=== PATIENT | male | born 1960 | race Caucasian/White ===

== ENCOUNTER 2017-04-06 15:00 | Inpatient (IN) | payer BC ==
[~2017-04-06] VITALS: Ht 200.7 cm; Wt 130.0 kg
--- NOTE | ~2017-04-06 | MR17 ---
[facility] A Service of [facility] RADIOLOGY TEXT RESULTS PATIENT: RAIMUNDO GUILLAUME LOCATION: C3A 301-01 : 62 UNIT #: [id number] AGE: [address]: Sadi Loo MD SEX: M ORDER DR: [id number] [facility] [address] [place], [place] [address] [id number] I MR#: [id number] Acc #: [id number] NAME: RAIMUNDO GUILLAUME : 1960 SEX: M STUDY DATE/TIME: 04/07/2017 22:58 UNIT: A U ROOM: 301 STUDY DESCRIPTION: MR Brain WWo Contrast Attending Physician: Sadi Loo M.D. Ordering Physician: Sadi Loo M.D. Primary Care Physician: Tyrel Copeland Parveen [facility] REPORT This report is preliminary unless electronic signature is present. EXAM Brain MRI with and without. HISTORY 56-year-old male patient with complaint of seizure disorder, atrial fibrillation, hypertension. Seizure disorder for 2 1/2 years. Patient has had 7 seizures in that time, the last one 3 days ago when patient blacked out while mowing the lawn and hit his left forehead. No history of cancer or surgery. COMMENT MRI of the brain was performed prior to and following the intravenous administration of 20 mL of MultiHance using a seizure protocol on the 1.5T system. There is comparison head CT from 04/06/2017. Preliminary voice note provided by Dr. Mclaughlin at 23:50. There is no evidence for a recent ischemic insult on the diffusion series. Midline structures are unremarkable. There is no extraaxial fluid collection. There is mild asymmetry of the temporal horns, but there is no definite signal abnormality in the hippocampal formations. No convincing evidence for mesial temporal sclerosis. Please correlate with any known EEG abnormalities. Small amount of fluid or inflammatory change in the mastoid tips. The major intracranial flow voids are maintained. There is no hydrocephalus. There is mild white matter signal abnormality, which is nonspecific, most confluent in the deep periventricular white matter and probably due to small vessel disease. This includes some mild signal abnormality in the brainstem. Following contrast administration, there is no pathologic intracranial enhancement. No intracranial mass lesion or mass effect. [facility] A Service of [facility] RADIOLOGY TEXT RESULTS PATIENT: RAIMUNDO GUILLAUME LOCATION: C3A 301-01 : 62 UNIT #: [id number] AGE: [address]: Sadi Loo MD SEX: M ORDER DR: Nothing to suggest migrational anomaly. No definite discrete seizure focus is identified. Partly redemonstrated is the soft tissue swelling in the left frontal scalp area. IMPRESSION 1. Mild probable sequelae of small vessel disease, otherwise essentially negative MRI of the brain with and without contrast using the seizure protocol. No discrete seizure focus is identified. Please correlate with any EEG abnormalities. STAT * RESULT Dictated by... Manda Cleveland M.D. THIS IS AN ELECTRONICALLY VERIFIED REPORT Manda Cleveland M.D. at 04/08/2017 9:56 AM Roly TD: 04/08/2017 08:15 JOB #: [id number] MRI CENTER REPORT Page 1 of 1 COPY
--- NOTE | ~2017-04-06 | EKG ---
PATIENT: RAIMUNDO GUILLAUME UNIT #: [id number] Ventricular Rate: 74 BPM Atrial Rate: 88 BPM QRS Duration: 106 ms Q-T Interval: 394 ms QTC Calculation(Bezet): 437 ms Calculated R Aspers: -15 degrees Calculated T Aspers: 36 degrees Diagnosis Line: Atrial fibrillation Diagnosis Line: Abnormal ECG Diagnosis Line: When compared with ECG of 06-APR-2017 16:31, Diagnosis Line: (unconfirmed) Diagnosis Line: No significant change was found Diagnosis Line: Confirmed by RICH AVENDAÑO MD ([id number]) on Diagnosis Line: 04/07/2017 2:01:11 PM INTERPRETING MD: KATERYNA HANCOCK
--- NOTE | ~2017-04-06 | CR229 ---
[facility] A Service of [facility] RADIOLOGY TEXT RESULTS PATIENT: RAIMUNDO GUILLAUME LOCATION: [facility] : 62 UNIT #: [id number] AGE: [address]: Sadi Loo MD SEX: M ORDER DR: [id number] [facility] [address] [place], [place] [address] [id number] I MR#: [id number] Acc #: [id number] NAME: RAIMUNDO GUILLAUME : 1960 SEX: M STUDY DATE/TIME: 04/06/2017 16:02 UNIT: [address] ROOM: [facility] STUDY DESCRIPTION: CR Shoulder Min 2 View Lt Attending Physician: Kindra Dove M.D. Ordering Physician: Logan Lee M.D. Primary Care Physician: Tyrel Saini MEDICAL IMAGING REPORT This report is preliminary unless electronic signature is present EXAM Left shoulder INDICATION Left shoulder pain after fall during seizure 1 day ago. COMPARISON 02/15/2016. FINDINGS Three views of the left shoulder were obtained. There is elevation of the clavicle as it relates to the acromion process but this is unchanged from the old exam. There are 3 or 4 fragments of calcification or bone inferior to the clavicle measuring up to 2 cm in diameter but they are also unchanged. IMPRESSION There is no evidence of an acute injury involving the shoulder. The patient does seem to have a chronic AC joint separation with elevation of the clavicle. There are some fragments of bone or calcifications inferior to the clavicle but these findings are all stable from February 15, 2016. Dictated by... Michael Merchant M.D. THIS IS AN ELECTRONICALLY VERIFIED REPORT Michael Merchant M.D. at 04/07/2017 2:52 PM PATRIC/nia [facility] A Service of [facility] RADIOLOGY TEXT RESULTS PATIENT: RAIMUNDO GUILLAUME LOCATION: [facility] : 62 UNIT #: [id number] AGE: [address]: Sadi Loo MD SEX: M ORDER DR: TD: 04/07/2017 06:54 JOB #: [id number] MEDICAL IMAGING REPORT Page 1 of 1 COPY
--- NOTE | ~2017-04-06 | HP ---
Unit #: [id number] #: [id number] Patient: RAIMUNDO GUILLAUME [id number] [facility] [address] [place], [place] [address] [id number] I MR#: [id number] NAME: RAIMUNDO GUILLAUME ROOM: 40858 Age: 56 Sex: M Admission Date: 04/06/2017 : 1960 Attending Physician: Kindra Dove M.D. Primary Care Physician: Tyrel Saini HISTORY AND PHYSICAL CHIEF COMPLAINT Seizure. HISTORY OF PRESENT ILLNESS The patient is a 56-year-old male with past medical history of hypertension, GERD, anxiety, chronic pain, who presented to the emergency department for evaluation of the above. The patient states that he was in his usual state of health until the day of admission when he was doing yard work. He states that he had been doing some trimming and walked to his garage. He felt his right arm "seize up." His head started pulling in one direction and he passed out. He denies any bladder or bowel incontinence. He bit his lip. He states that this is the eighth time he has had an episode like this. He states that typically his right upper extremity is involved initially and he experiences loss of consciousness. Prior to today, the last event was four months ago. He states that he has possibly been seen at [facility] in the emergency department. He has never had an EEG. He has not had an MRI. He has not been on any antiepileptic medication. He has never seen a neurologist. In the emergency department CT of the head was done and showed nothing acute intracranially. CT of the cervical spine showed nothing acute. EKG showed atrial fibrillation, which is a new diagnosis, with a rate of 74 beats per minute. He has never seen a receiving operator, never had a stress test, never had a cardiac catheterization. In the emergency department he was given 1 L of normal saline as well as 10 mg of [place], 1 g of Keppra. He is being admitted to [facility] for evaluation and further treatment. PAST MEDICAL HISTORY 1. Admission to [facility] for abdominal pain (no records). 2. Admission to [facility] April 08-2014 for obstructive jaundice secondary to common bile duct stones. He was unable to have ERCP due to a history of Prasanna-en-Y gastric bypass. He underwent laparoscopic cholecystectomy and bile duct exploration. 3. Hypertension. 4. Anxiety. 5. Chronic pain, followed by [facility]. PAST SURGICAL HISTORY 1. Cholecystectomy. Unit #: [id number] #: [id number] Patient: RAIMUNDO GUILLAUME 2. Gastric bypass. 3. Left shoulder surgery. 4. Leg surgery. SOCIAL HISTORY The patient lives alone. There is no tobacco or alcohol use. He is retired from [employer]. FAMILY HISTORY Family history is notable for his mother having leukemia. His dad has coronary artery disease and just underwent coronary artery bypass grafting at the age of 77. ALLERGIES No known allergies. HOME MEDICATIONS 1. Norvasc 5 mg daily. 2. Paxil 20 mg daily. 3. Lomotil daily. 4. Prilosec 40 mg daily. 5. Xanax 1 mg p.o. unknown frequency. 6. Hydrocodone and acetaminophen 10/325 t.i.d. REVIEW OF SYSTEMS A complete review of systems is negative except as indicated in the HPI. The patient denies any history of head trauma. He denies any palpitations. He has had pain in the left upper chest and shoulder area since the likely seizure today. He states that he has chronic pain in the left shoulder. DIAGNOSTIC STUDIES CARDIOVASCULAR: EKG shows atrial fibrillation with a rate of 74 beats per minute. IMAGING: Chest x-ray shows nothing acute. CT of the head shows left frontal scalp swelling but no intracranial abnormality. Left shoulder shows no acute injury. There is chronic AC separation. CT of the cervical spine shows nothing acute. LABORATORY: Complete blood count notable for white blood cell count of 10.8, hemoglobin and hematocrit 10.4 and 32.9 respectively. Comprehensive metabolic panel notable for potassium of 3.3, glucose is 112, magnesium is 2.2, troponin is less than 0.05. PHYSICAL EXAMINATION VITAL SIGNS: Temperature is 98.3. Pulse 88. Respirations 16. Blood pressure 130/86. Oxygen saturation is 98% on room air. GENERAL: The patient is a male who is awake and alert, in no acute distress. HEENT: The patient does have a forehead hematoma. Mucous membranes are moist. The patient does have a laceration involving the mucosal surface of the upper lip. NECK: Neck is supple. Trachea is midline. Unit #: [id number] #: [id number] Patient: RAIMUNDO GUILLAUME CARDIOVASCULAR: Irregular. LUNGS: Lungs are clear to auscultation bilaterally with no increased work of breathing. ABDOMEN: Abdomen is soft, nontender, with bowel sounds present all four quadrants. He does have several scars on the abdomen. EXTREMITIES: Nontender, with no pedal edema. NEUROLOGIC: The patient is awake and alert. He follows commands. PSYCHIATRIC: Mood and affect are normal. The patient is cooperative. SKIN: Demonstrates a few scattered abrasions. ASSESSMENT The patient is a 56-year-old male with: 1. Seizures. The patient has had eight seizures within the past two to three years. He is not on any antiepileptic medication. He has not seen a neurologist. He has never had an EEG, never had an MRI. He was given a gram of Keppra today in the emergency department. 2. New atrial fibrillation, rate controlled with a heart rate in the 70s. The patient has never had a cardiac workup. 3. Hypokalemia with initial potassium of 3.3. 4. Hypertension. 5. Gastroesophageal reflux disease. 6. Anxiety. 7. Chronic pain, followed by [facility]. PLAN 1. Admit for observation to intermediate level. 2. Healthy heart diet if passes bedside swallow. 3. Normal saline at 100 mL an hour. 4. MRI of the brain with and without contrast per seizure protocol. 5. Seizure precautions. 6. Neuro checks q.4 h. 7. Consult neurology regarding multiple seizures. 8. Two-D echo. 9. Serial cardiac enzymes. 10. Lovenox 1 mg/per kg subcu q.12 h. pending Cardiology recommendations. 11. Consult Dr. Gagnon regarding new afib. 12. Replace potassium. 13. Repeat labs in the morning including magnesium. Dictated by Oliver Arguelles/ba TD: 04/06/2017 20:06 JOB #: [id number] Unit #: [id number] #: [id number] Patient: RAIMUNDO GUILLAUME HISTORY AND PHYSICAL Page 1 of 1 X Kindra Dove MD X HISTORY AND PHYSICAL
--- NOTE | ~2017-04-06 | EE ---
Unit #: [id number] #: [id number] Patient: RAIMUNDO GUILLAUME [id number] [address] [address] [id number] I MR#: [id number] NAME: RAIMUNDO GUILLAUME : 1960 SEX: M STUDY DATE/TIME: 04/08/2017 UNIT: C3A PCU ROOM: 301 STUDY DESCRIPTION: Attending Physician: Sadi Loo M.D. Primary Care Physician: Tyrel Saini NEURODIAGNOSTICS REPORT EXAM EEG report REASON FOR STUDY Seizure. EEG DESCRIPTION This is an inpatient, digitally recorded multimontage adult EEG with leads placed according to the International 10/20 system. Hyperventilation and photic stimulation were attempted. FINDINGS With the patient fully aroused, there is 10 Hz posterior dominant Alpha rhythm which is symmetric and attenuates with eyes open. The patient did become drowsy but I do not see any deeper stages of sleep. Hyperventilation was attempted but I do not see any significant changes. Photic stimulation was attempted in intermittent stepwise pattern after the flash frequency of 30 Hz, some activity was bilaterally seen symmetrically at 7 Hz, nothing suggesting clearcut seizures of interictal discharges or clinical events. IMPRESSION This is an essentially normal adult awake and drowsy EEG. EEG like this does not rule out epilepsy. Clinical correlation is recommended. Dictated by... Oliver Cheng/lynda TD: 04/11/2017 07:47 JOB #: [id number] Unit #: [id number] #: [id number] Patient: RAIMUNDO GUILLAUME NEURODIAGNOSTICS REPORT Page 1 of 1 X Baljit Trejo MD NEURODIAGNOSTICS REPORT
--- NOTE | ~2017-04-06 | CR72 ---
[facility] A Service of [facility] RADIOLOGY TEXT RESULTS PATIENT: RAIMUNDO GUILLAUME LOCATION: [facility] 301-01 : [birth year] UNIT #: [id number] AGE: [address]: Sadi Loo MD SEX: M ORDER DR: [id number] [facility] [address] [place], [place] [address] [id number] I MR#: [id number] Acc #: [id number] NAME: RAIMUNDO GUILLAUME : 1960 SEX: M STUDY DATE/TIME: 04/06/2017 16:01 UNIT: A U ROOM: [facility] STUDY DESCRIPTION: CR Chest Single View Portable Attending Physician: Kindra Dove M.D. Ordering Physician: Logan Lee M.D. Primary Care Physician: Tyrel Saini MEDICAL IMAGING REPORT This report is preliminary unless electronic signature is present EXAM Portable chest 04/06/2017 HISTORY 56-year-old male with shortness of breath and left shoulder pain status post fall during seizure 1 day ago. COMPARISON Chest 03/03/2014. FINDINGS Frontal chest demonstrates clear lungs. No pleural effusion or pneumothorax. Heart size and mediastinum are normal. Pulmonary vasculature normal. IMPRESSION No acute cardiopulmonary findings. Dictated by... Brian Maldonado M.D. THIS IS AN ELECTRONICALLY VERIFIED REPORT Brian Maldonado M.D. at 04/07/2017 5:07 PM MYA/nia TD: 04/07/2017 06:53 JOB #: [id number] MEDICAL IMAGING REPORT Page 1 of 1 COPY
--- NOTE | ~2017-04-06 | DS ---
Unit #: [id number] #: [id number] Patient: RAIMUNDO GUILLAUME [id number] [facility] [place], [place] [address] [id number] I MR#: [id number] NAME: RAIMUNDO GUILLAUME ROOM: 301 Age: 56 Sex: M Admission Date: 04/06/2017 : 1960 Discharge Date: 04/08/2017 Attending Physician: Sadi Loo M.D. Primary Care Physician: Tyrel Saini DISCHARGE SUMMARY PRIMARY DIAGNOSIS Possible seizure, new diagnosis, focal with secondary generalization. SECONDARY DIAGNOSES 1. History of multiple episodes of loss of consciousness in the past, possibly representing seizures that were not diagnosed. 2. New-onset atrial fibrillation. 3. Hypertension. 4. Chronic pain syndrome. 5. Anxiety. 6. Seasonal allergies. 7. 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 8. Hypokalemia, resolved at discharge. 9. Anemia of iron deficiency. HOSPITAL COURSE The patient was placed in the hospital, was seen by cardiology who recommended metoprolol and Eliquis for the patient's atrial fibrillation. They also recommended an outpatient sleep study, so pulmonology with Dr. Rendon and Dr. Alfaro were consulted and will see the patient in outpatient followup in one to two weeks. Regarding his possible seizure, neurology ordered a MRI which was suggestive of some chronic microvascular disease but no acute issues and no brain masses. An EEG will be done prior to discharge and the result can be followed up outpatient with neurology. The patient will be started on Keppra due to his description of the events. Patient apparently has fairly severe seasonal allergies and takes very high doses of Benadryl multiple times per day to try to treat this. I have advised him that is not a safe practice and will start him on daily Claritin. I suspect he will also probably need to be started on Singulair and follow up with his primary care physician in order to get him to pull back on the amounts of Benadryl that he is using. I have advised him not to use the Benadryl anymore, but he is somewhat resistant to that. I also counseled him on diabetic diet. Regarding his anemia, he had a very low ferritin and iron saturation. He clearly has some iron-deficiency anemia and would recommend colonoscopy if not done in the last 10 years. Defer to the patient's primary care physician to set this up. I placed the patient on iron supplements. DISCHARGE DISPOSITION To home. Unit #: [id number] #: [id number] Patient: RAIMUNDO GUILLAUME DISCHARGE STATUS Stable. DISCHARGE DIET A 2000 mg sodium, heart healthy diet. The patient was educated about this as he was not compliant with it in the hospital. DISCHARGE ACTIVITY Seizure precautions, especially if the patient is now going to be on blood thinners. FOLLOWUP PHYSICIANS The patient should follow up with Dr. Alfaro with pulmonology in one to two weeks for evaluation for his outpatient sleep study. Followup with Dr. Tyrel Coronado with neurology in eight weeks. Followup with his PCP in two to four weeks for seasonal allergies, iron-deficiency anemia, and to be referred for colonoscopy if needed. Followup with Dr. Paul Gagnon with cardiology in 8-12 weeks. DISCHARGE MEDICATIONS 1. Iron sulfate 325 mg p.o. once daily with meals. 2. Eliquis 5 mg p.o. b.i.d. 3. Metoprolol tartrate 12.5 mg p.o. b.i.d. 4. Prilosec 40 mg p.o. daily. 5. Hydrocodone with Tylenol 10/325 one tablet p.o. t.i.d. p.r.n. pain. 6. Norvasc 5 mg p.o. daily. 7. Xanax 0.5 mg p.o. q.8 hours p.r.n. for anxiety. 8. Claritin 10 mg p.o. daily. 9. Paxil 20 mg p.o. daily. 10. Keppra 500 mg p.o. b.i.d. Dictated by... Sadi Loo M.D. LUCOI/josh TD: 04/09/2017 09:17 JOB #: [id number] DISCHARGE SUMMARY Page 1 of 1 X Sadi Loo MD X DISCHARGE SUMMARY
--- NOTE | ~2017-04-06 | CT52 ---
[facility] A Service of [facility] RADIOLOGY TEXT RESULTS PATIENT: RAIMUNDO GUILLAUME LOCATION: [facility] : 62 UNIT #: [id number] AGE: [address]: Sadi Loo MD SEX: M ORDER DR: [id number] [facility] [address] [place], [place] [address] [id number] I MR#: [id number] Acc #: [id number] NAME: RAIMUNDO GUILLAUME : 1960 SEX: M STUDY DATE/TIME: 04/06/2017 16:18 UNIT: A PCU ROOM: [facility] STUDY DESCRIPTION: CT Cervical Spine Wo Cont Attending Physician: Kindra Dove M.D. Ordering Physician: Logan Lee M.D. Primary Care Physician: Tyrel Saini MEDICAL IMAGING REPORT This report is preliminary unless electronic signature is present EXAM CT scan of the cervical spine without contrast. INDICATIONS Seizure with fall and trauma to head and neck. Neck pain. COMPARISON There is no comparison. TECHNIQUE Axial 2 mm images were obtained through the cervical spine and sagittal and coronal reconstructions were generated. This CT exam was performed with one or more of the following radiation dose reduction techniques: automatic exposure control, adjustment of mA and/or kV according to patient size, and iterative reconstruction. FINDINGS The alignment is normal. The vertebral bodies have a normal appearance. There is no disk space narrowing or soft tissue swelling. There is minimal neural foraminal narrowing on the right at C5-6. IMPRESSION No evidence of acute injury. Dictated by... Michael Merchant M.D. THIS IS AN ELECTRONICALLY VERIFIED REPORT Michael Merchant M.D. at 04/07/2017 2:52 PM [facility]/shalini TD: 04/07/2017 07:15 [facility] A Service of [facility] RADIOLOGY TEXT RESULTS PATIENT: RAIMUNDO GUILLAUME LOCATION: [facility] : 62 UNIT #: [id number] AGE: [address]: Sadi Loo MD SEX: M ORDER DR: JOB #: [id number] MEDICAL IMAGING REPORT Page 1 of 1 COPY
--- NOTE | ~2017-04-06 | CO ---
Unit #: [id number] #: [id number] Patient: RAIMUNDO GUILLAUME [id number] [place], [place] [address] [id number] I MR#: [id number] NAME: RAIMUNDO GUILLAUME ROOM: 301 Age: 56 Sex: M Admission Date: 04/06/2017 : 1960 Attending Physician: Sadi Loo M.D. CONSULTATION REPORT REASON FOR CONSULT Rule out sleep apnea. CHIEF COMPLAINT Questionable seizure. HISTORY OF PRESENT ILLNESS This is a 56-year-old male with a past medical history significant for morbid obesity, status post gastric bypass, hypertension, GERD, anxiety, and chronic pain, who presented to the emergency room with syncope. Patient stated that he was mowing his grass and was at his baseline. Then, he bent over to grab something and did not realize that he passed out until he (1) to his truck, and then he realized that he had a lot of lacerations and blood on his forehead, cheek, left arm, and left leg. Patient did not remember that he passed out, and he could not tell for how long he passed out. There was no witness. He denied feeling anything different before or after. There was no fever or chills and no nausea, vomiting, or diarrhea. Patient was working around 1 p.m., and it was hot and humid outside. Patient denied any history of seizure before. Patient used to wear CPAP in the 90s but he quit after he lost weight after his gastric bypass. Of note, he lost about 200 pounds. Patient denied any witnessed apnea currently, but he lives alone. PAST MEDICAL HISTORY 1. Hypertension. 2. Anxiety. 3. Morbid obesity, status post gastric bypass. 4. Chronic pain. PAST SURGICAL HISTORY 1. Cholecystectomy. 2. Gastric bypass. 3. Left shoulder surgery. 4. Leg surgery. SOCIAL HISTORY Patient lives alone. No history of alcohol, drug abuse, or smoking. He is retired from [employer]. FAMILY HISTORY Unit #: [id number] #: [id number] Patient: RAIMUNDO GUILLAUME Leukemia. ALLERGIES No known drug allergies. HOME MEDICATIONS 1. Norvasc. 2. Paxil. 3. Lomotil. 4. Prilosec. 5. Xanax. 6. Hydrocodone. REVIEW OF SYSTEMS A 12-point review of systems was obtained and was negative except for what was mentioned in the HPI. PHYSICAL EXAMINATION GENERAL: Patient is not in acute distress. HEENT: Atraumatic and normocephalic. PERRLA. EOMI. NECK: Supple. No JVD, no lymphadenopathy. CLEAR: Clear to auscultation bilaterally. HEART: S1 and S2. No murmur, gallops, or rubs. ABDOMEN: Soft and nontender. Bowel sounds positive. No hepatosplenomegaly. EXTREMITIES: No edema or cyanosis. SKIN: No rashes. CENTRAL NERVOUS SYSTEM: Awake, alert, and oriented x3. No focal motor/sensory deficits. DIAGNOSTIC STUDIES LABORATORY: Creatinine 1, potassium 3.3, and calcium 8.9. Hemoglobin 9.2 and platelets 197,000. IMAGING: CT chest and chest x-ray are noted and reviewed by me. ASSESSMENT 1. Syncope. 2. Rule out seizure. 3. History of obstructive sleep apnea. 4. Morbid obesity. 5. Hypertension. 6. Anemia. PLAN 1. Syncope versus seizure workup is per primary and Cardiology. 2. Due to his history of obstructive sleep apnea and morbid obesity, and in spite of his weight loss, he will still need a split study to rule out any component of untreated sleep apnea. 3. Will defer Holter monitor to Cardiology. 4. Gentle IV hydration. 5. DVT prophylaxis. I would like to thank Dr. Gagnon for allowing me to be part of this patient's care. Dictated by... Bienvenido Rendon M.D. Unit #: [id number] #: [id number] Patient: AUNDREA,JERRY Cailin TD: 04/08/2017 14:05 JOB #: [id number] CONSULTATION REPORT Page 1 of 1 X BIENVENIDO ONEAL MD CONSULTATION REPORT
--- NOTE | ~2017-04-06 | CO ---
Unit #: [id number] #: [id number] Patient: RAIMUNDO GUILLAUME [id number] [facility] [address] [facility] [place], [place] [address] [id number] I MR#: [id number] NAME: RAIMUNDO GUILLAUME ROOM: 301 Age: 56 Sex: M Admission Date: 04/06/2017 : 1960 Attending Physician: Sadi Loo M.D. Primary Care Physician: Tyrel Saini Consultation Date: 04/07/2017 CONSULTATION REPORT PRIMARY CARE PHYSICIAN Dr. Deluna. CONSULTING PHYSICIAN Kindra Dove M.D. REASON FOR CONSULT Seizures. PATIENT IDENTIFICATION This is a 56-year-old, right-handed, male, evaluated in room #301 at [facility]. SOURCE OF INFORMATION Obtained from the patient, the patient's mother at bedside, as well as medical record. HISTORY OF PRESENT ILLNESS This is a very pleasant, mildly anxious 56-year-old, right-handed, male with past medical history of chronic pain, anxiety, and hypertension, who presents to [facility] with report of seizure activity. The patient states that he was in his usual state of health until the day of admission, whenever he was doing yard work outside. He states he had been mowing and using a upper trimmer. He states that he suddenly began to feel lightheaded and then he reports that his right arm "seized up." He states that it was tense and that he could not use it. He states that then he passed out and does not know what happened after that. He states that he woke up in the ER, not certain how much time he passed. He reports that he went inside and had some water and then called his mother. EMS was called and he was brought here for further evaluation of seizure activity. He has multiple abrasions on his arms and his face. He has a left scalp hematoma. CT scan of the head was negative for any acute intracranial abnormality. He also has cut where he bit his lip on the top. He states that his last event was about four months ago and he has had about seven or eight events in the last couple of years. He states that a couple of years ago, with his first event, he was seen at [facility] ER but reports that he was not admitted for further evaluation and was seen in the ED and evaluated there. He cannot tell me exactly what he had done. He states he may have had an MRI. He does he reports he has never had an EEG. He has never been on seizure medication. He does report that he has a history in the past of binge drinking and has had events surrounding those episodes. He states that he also has been being weaned off his Xanax. He reports he was seeing the PCP in the [place] and had to switch to a PCP in [place] and is now Unit #: [id number] #: [id number] Patient: RAIMUNDO GUILLAUME seeing Dr. Hobbs next door. He states that he has been out of his Xanax for about 20 days and just got a refill. He reports that at times he has had episodes that of focal right-sided seizure activity where his arm tenses up and twitches, but everything resolves on its own. He reports that at other times his arm will tense up and twitch and that he will lose consciousness. He is uncertain of whether he has lost control of his bowel or bladder. He denies any headache, neck pain, focal weakness or paresthesia, shortness of air, chest pain, or palpitations, fevers, or chills, recent injury or illness. He reports that he feels well today and back to his baseline and denies any current complaints. He denies any recent binge drinking or withdrawal from alcohol. He also had a CT of the cervical spine done without contrast yesterday in the ER given his fall and it shows no evidence of acute injury. His CT of the head showed a left frontal scalp swelling, but otherwise no acute intracranial abnormality. PAST MEDICAL HISTORY 1. Admission to [facility] for abdominal pain. No records were available, but the patient states that he had recent surgery, again records were not available. 2. Admission to [facility] in April of 2015 for obstructive jaundice secondary to common bile duct stones. He is unable to have endoscopic retrograde cholangiopancreatography due to a Prasanna-en-Y gastric bypass. He underwent laparoscopic cholecystectomy and bile duct exploration. 3. Hypertension. 4. Anxiety. 5. Chronic pain. He sees pain specialist. 6. Cholecystectomy. 7. Gastric bypass. 8. Left shoulder surgery. 9. Leg surgery. FAMILY HISTORY He denies a family history of epilepsy or seizures. Positive for his mother having leukemia. His dad had coronary artery disease and underwent a recent coronary artery bypass grafting surgery at the age of 77. He denies any family history of neurologic disease. SOCIAL HISTORY The patient lives alone. His mother is at the bedside. He denies tobacco use. He denies current alcohol abuse. He reports that he has had head binge drinking in the past. He is retired. He denies illicit drug use. ALLERGIES No known drug allergies. MEDICATIONS Home medications: 1. Norvasc. 2. Paxil. 3. Lomotil. 4. Prilosec. 5. Xanax. 6. Hydrocodone/acetaminophen 10/325. REVIEW OF SYSTEMS Fourteen-point review of systems was done, pertinent positives are as discussed above otherwise negative. Unit #: [id number] #: [id number] Patient: RAIMUNDO GUILLAUME PHYSICAL EXAMINATION VITAL SIGNS: Temperature 97.5. He has been afebrile, pulse 84, respirations 18, blood pressure 134/85. Blood pressure in the ER on arrival was 130/86, oxygen saturation 99%. Height 6 feet and 7 inches, and weight 285 pounds. BMI 32. NEUROLOGIC EXAM: The patient is awake, alert, and oriented to person, place, and time as well as events. No right or left confusion. No finger agnosia. No aphasia, dysarthria, or apraxia. Cranial nerve exam demonstrates full trivedi of vision. Eyes are conjugate without ptosis or nystagmus. Extraocular movements are intact. Sensation of face and scalp is intact. Strength of the muscles and facial expression is intact. Hearing is intact to finger rub and conversation. Tongue is midline. Uvula is midline. Palate elevation is normal. Head turning and shoulder shrug is unremarkable. Neck is supple. Motor exam demonstrates normal bulk and tone. Strength is equal 5/5 in all extremities. Sensory exam is intact. Gait normal. Romberg deferred. Coordination unremarkable. DIAGNOSTIC STUDIES As discussed above. Other diagnostic studies are as per chart have been reviewed. Chest x-ray shows no acute cardiopulmonary findings. He had an EKG done that does show atrial fibrillation with controlled rate of 74 beats per minute. Cardiology has been consulted. Labs, cholesterol 163, triglycerides 53, LDL 95, HDL 51, CK 272. CMP, unremarkable other than a calcium of 8.3. Troponin less than 0.03. White blood cell count of 6.2, hemoglobin 9.7, hematocrit 31.1, and platelet count 197, TSH 1.73. Initial troponin less than 0.05. Initial white count 10.8. IMPRESSION 1. Seizure. Per history seems to be reported as a possible focal event with secondary generalization. 2. History of multiple seizures per the patient in the past. He denies any formal Neurology evaluation in the past for evaluation with EEG and possibly MRI. 3. Hypertension. 4. New onset atrial fibrillation, unknown duration. 5. Chronic pain. 6. Anxiety. PLAN The patient has had multiple events in the past and certainly must consider that they may have been provoked given his history of binge drinking and Xanax use and abrupt withdrawal; however, it has been 20 days since he has had Xanax and he reports he is no longer binge drinking. He continues to have events that appear to be focal as well some with secondary generalization, some without. We certainly cannot rule out epileptic activity and he needs to be on seizure medication. We will continue his Keppra. He was loaded with a gram in the ER and continue at 500 mg p.o. b.i.d. We will request MRI of the brain without and with contrast per seizure protocol and requested an EEG to be done as well. He needs to follow up with outpatient Neurology and continue seizure medication at this time. He is not in status epilepticus. He has had no further events here. He is stable. We will continue him on his seizure medication and order the above test and recommend that he follow up with outpatient Neurology for continued followup and further evaluation. If EEG is unremarkable, may have to consider outpatient epilepsy monitoring. Unit #: [id number] #: [id number] Patient: RAIMUNDO GUILLAUME Nothing focal on exam to suggest acute stroke and again, he is not clinically in status epilepticus. He is back to his baseline. Awake, alert, oriented, and appropriate. He denies any history of suicidal ideation or depression. We will trial him on Keppra and monitor for any possible side effects. I educated him on the use of Keppra and potential side affects and he agrees to start that medication and we will follow along with you. We thank you very much for allowing us to assist in the care of this patient. I discussed with Dr. Trejo at the time of evaluation and dictation. He agrees with above assessment and plan. Dictated by... Mikayla Morrow A.P.R.N. for Oliver Cheng/sanford TD: 04/08/2017 04:58 JOB #: [id number] CONSULTATION REPORT Page 1 of 1 X Mikayla Morrow APRN X CONSULTATION REPORT
--- NOTE | ~2017-04-06 | CT71 ---
[facility] A Service of [facility] & [facility] RADIOLOGY TEXT RESULTS PATIENT: RAIMUNDO GUILLAUME LOCATION: [facility] 301- : [birth year] UNIT #: [id number] AGE: [address]: Sadi Loo MD SEX: M ORDER DR: [id number] [facility] [address] [place], [place] [address] [id number] MR#: [id number] Acc #: [id number] NAME: RAIMUNDO GUILLAUME : 1960 SEX: M STUDY DATE/TIME: 04/06/2017 15:47 UNIT: A U ROOM: [facility] STUDY DESCRIPTION: CT Head Wo Contrast Attending Physician: Kindra Dove M.D. Ordering Physician: Logan Lee M.D. Primary Care Physician: Tyrel Saini M.D. MEDICAL IMAGING REPORT This report is preliminary unless electronic signature is present EXAM CT scan of the head without contrast HISTORY Seizure. Patient fell and hit head and has head pain and neck pain today. Injury happened today. COMPARISON 03/03/2014 FINDINGS Unenhanced images were obtained through the brain. There is some left scalp swelling in the frontal region. The ventricles and subarachnoid spaces are normal and there are no masses or extraaxial fluid collections or hemorrhage. The bones are normal. IMPRESSION Left frontal scalp swelling otherwise normal. Dictated by... Michael Merchant M.D. THIS IS AN ELECTRONICALLY VERIFIED REPORT Michael Merchant M.D. at 04/07/2017 2:52 PM Shaniqua TD: 04/07/2017 07:11 JOB #: [id number] MEDICAL IMAGING REPORT Page 1 of 1 COPY
--- NOTE | ~2017-04-06 | EKG ---
PATIENT: RAIMUNDO GUILLAUME UNIT #: [id number] Ventricular Rate: 85 BPM Atrial Rate: 86 BPM QRS Duration: 100 ms Q-T Interval: 384 ms QTC Calculation(Bezet): 456 ms Calculated R [place]: -18 degrees Calculated T [place]: 44 degrees Diagnosis Line: Atrial fibrillation Diagnosis Line: Abnormal ECG Diagnosis Line: When compared with ECG of 08-APR-2015 04:32, Diagnosis Line: Atrial fibrillation has replaced Sinus rhythm Diagnosis Line: Confirmed by RICH AVENDAÑO MD ([id number]) on Diagnosis Line: 04/07/2017 2:00:50 PM INTERPRETING MD: KATERYNA HANCOCK
[~2017-04-06 15:00] MED LIST: ALPRAZOLAM PO; ALPRAZOLAM1 MG PO; AMLODIPINE BESYL5 MG PO; HYDROCODON-ACE1 EAC5 PO; LORTAB 101 TAB 10/5 PO; VICODIN PO
[2017-04-06 15:59] LABS: BASOPHIL% 0.2 % (0-2.5); EOSINOPHIL# 0.1 X10e3 (0-0.7); EOSINOPHIL% 0.6 % (0.0-7.0); HEMATOCRIT 32.9 % (38.0-50.0); HEMOGLOBIN 10.4 gm/dL (13.0-16.0); LYMPHOCYTE# 0.8 X10e3 (1.0-3.5); LYMPHOCYTE% 7.5 % (17.0-45.0); MEAN CELL VOLUME 70.3 FL (83-96); MEAN CORPUSCULAR HEMOGLOBIN 22.2 PG (28-34); MEAN CORPUSCULAR HGB CONC 31.6 g/dL (30-36); MEAN PLATELET VOLUME 7.6 FL (6.5-11.5); MONOCYTE# 0.6 X10e3 (0-1.0); MONOCYTE% 5.5 % (3.0-12.0); NEUTROPHIL# 9.3 X10e3 (1.5-7.1); NEUTROPHIL% 86.2 % (40-75); PLATELET COUNT 236 X10e3 (140-420); RED BLOOD COUNT 4.68 X10e (3.90-5.60); RED CELL DISTRIBUTION WIDTH 17.1 % (11.0-15.5); WHITE BLOOD COUNT 10.8 X10e3 (4.0-10.5)
[2017-04-06 16:02] LABS: DIFF IND NO
[2017-04-06 16:28] LABS: ALBUMIN SERUM 4.1 g/dL (3.5-5.0); BILIRUBIN, DIRECT 0.1 mg/dL (0.0-0.2); BILIRUBIN,INDIRECT 0.9 mg/dL (0.0-0.9); CALCIUM SERUM 8.9 mg/dL (8.4-10.2); GLOM FILT RATE Estimated 84.4 mL/min (>60); POTASSIUM 3.3 mmol/L (3.5-5.1); PROTEIN TOTAL SERUM 7.3 g/dL (6.0-8.3)
[2017-04-06] MEDS ORDERED: PAXIL PO (18:16)
[2017-04-06] MEDS ORDERED: NORVASC PO (18:16)
[2017-04-06] MEDS ORDERED: PRILOSEC PO (18:17)
[2017-04-06] MEDS ORDERED: LOMOTIL 2.5-0.1 EACH PO (18:17)
[2017-04-06] MEDS ORDERED: XANAX1 MG PO (18:18)
[2017-04-06] MEDS ORDERED: HYDROCODON-ACE1 EAC5 PO (18:18)
[2017-04-06 18:20] LABS: POC - TROPONIN <0.05 ng/mL (<=0.05)
[2017-04-06 19:58] LABS: POC - CKMB 1.7 ng/mL (0.0-7.9); POC - TROPONIN <0.05 ng/mL (<=0.05)
[2017-04-07 01:07] LABS: %MB 1.5 % (0.0-4.0); MB 3.7 ng/ml
[2017-04-07 05:45] LABS: HEMATOCRIT 31.1 % (38.0-50.0); HEMOGLOBIN 9.7 gm/dL (13.0-16.0); MEAN CELL VOLUME 70.6 FL (83-96); MEAN CORPUSCULAR HGB CONC 31.1 g/dL (30-36); MEAN PLATELET VOLUME 7.5 FL (6.5-11.5); RED BLOOD COUNT 4.4 X10e (3.90-5.60); RED CELL DISTRIBUTION WIDTH 16.7 % (11.0-15.5); WHITE BLOOD COUNT 6.2 X10e3 (4.0-10.5)
[2017-04-07 06:35] LABS: %MB 1.6 % (0.0-4.0); MB 4.4 ng/ml
[2017-04-07 06:38] LABS: ALBUMIN SERUM 3.5 g/dL (3.5-5.0); BILIRUBIN,TOTAL 0.7 mg/dL (0.2-2.0); BUN/CREATININE RATIO 12.22; CALCIUM SERUM 8.3 mg/dL (8.4-10.2); CREATININE SERUM 0.9 mg/dL (0.6-1.4); GLOM FILT RATE Estimated 95.8 mL/min (>60); POTASSIUM 3.6 mmol/L (3.5-5.1); PROTEIN TOTAL SERUM 6.3 g/dL (6.0-8.3)
[2017-04-07 08:58] LABS: CHOLESTEROL 163 mg/dL (0-200); HDL CHOLESTEROL 51 mg/dL (29-75); LDL CHOLESTEROL 95 mg/dL (-130); LDL/HDL RATIO 2 RATIO (0-4); TRIGLYCERIDES 83 mg/dL (10-160)
[2017-04-08 06:22] LABS: HEMATOCRIT 29.4 % (38.0-50.0); HEMOGLOBIN 9.2 gm/dL (13.0-16.0)
[2017-04-08 07:41] LABS: IRON SERUM 16 ug/dL (45-182); TOTAL IRON BINDING CAPACITY 436 ug/dL (252-460); TRANSFERRIN 312 mg/dL (180-329); TRANSFERRIN SATURATION 4 % (20-50)
[2017-04-08] MEDS ORDERED: CLARITIN10 M3 PO (14:32)
[2017-04-08] MEDS ORDERED: KEPPRA500 M2 PO (14:32)
[2017-04-08] MEDS ORDERED: LOPRESSOR PO (14:34)
[2017-04-08] MEDS ORDERED: ELIQUIS5 MG PO (14:34)
== END 2017-04-08 16:41 | disposition home or self-care (01) | DRG 101 ==
LOC: CED 15:00 → CEDOF 18:50 → C3A PCU 18:50 → CED 20:02 → CEDOF 20:02 → C3A PCU 20:11
PROVIDERS: Emergency Medicine; Family Medicine; Internal Medicine; Internal Medicine Cardiovascular Disease
PROC: B24BZZZ Ultrasonography of Heart with Aorta (ICD-10-PCS; principal; 2017-04-07)
DX: G40.89 Other seizures (principal); I48.91 Unspecified atrial fibrillation; I10 Essential (primary) hypertension; E66.01 Morbid (severe) obesity due to excess calories; F19.10 Other psychoactive substance abuse, uncomplicated; D50.9 Iron deficiency anemia, unspecified; G89.4 Chronic pain syndrome; F41.9 Anxiety disorder, unspecified; J30.2 Other seasonal allergic rhinitis; E87.6 Hypokalemia; Z71.3 Dietary counseling and surveillance; K21.9 Gastro-esophageal reflux disease without esophagitis; S00.81XA Abrasion of other part of head, initial encounter; X58.XXXA Exposure to other specified factors, initial encounter; S00.03XA Contusion of scalp, initial encounter; G47.33 Obstructive sleep apnea (adult) (pediatric); Z68.31 Body mass index [BMI] 31.0-31.9, adult; Z90.49 Acquired absence of other specified parts of digestive tract; Z98.84 Bariatric surgery status; Z80.6 Family history of leukemia; Z82.49 Family history of ischemic heart disease and other diseases of the circulatory system
CPT/HCPCS: 36415; 70450; 70553; 71010; 72125; 73030; 80048; 80053; 80061; 80076; 82550; 82553; 82728; 82947; 83540; 83550; 83735; 84443; 84484; 85014; 85018; 85025; 85027; 93005; 93306; 95816; 96361; 96374; 99285; A9577; J1650; J1953